=== PATIENT | female | born 1995 | race Caucasian/White ===

== ENCOUNTER 2024-01-28 17:30 | Emergency (ER) | payer BC, SELFPAY ==
--- NOTE | ~2024-01-28 | XR_ITS ---
CHEST RADIOGRAPH, PA AND LATERAL CLINICAL HISTORY: cough, chest congestion, sob x 5 days . COMPARISON: None available TECHNIQUE: PA and lateral views of the chest. FINDINGS The cardiomediastinal silhouette is unremarkable. The lungs are clear. Visualized osseous structures and soft tissues are unremarkable. IMPRESSION: No focal infiltrate or effusion. Reviewed, dictated and finalized at location A. DOPTERIST
--- NOTE | 2024-01-28 17:34 | ED.URI ---
HPI - URI/Sore Throat General Chief Complaint: Upper Respiratory Infection Stated Complaint: Cough/Chest Congestion Time Seen by Provider: 01/28/24 17:34 Source: patient Mode of arrival: ambulatory Limitations: no limitations History of Present Illness HPI Narrative: Sandy is a 28-year-old female patient presenting to the clinic today with complaints of productive cough with greenish yellow phlegm, sinus congestion, headache, shortness of breath, and chest congestion x5 days. She reports she was seen on Sunday when her symptoms started and was given a burst of prednisone. She had strep COVID and flu testing at that time and was negative. She was diagnosed with a URI. States her symptoms have not been improving and seems like they are getting worse. MD elicited complaint: cough, rhinorrhea, nasal congestion and sinus pain Related Data Allergies Allergy/AdvReac Type Severity Reaction Status Date / Time No Known Allergies Allergy Verified 01/28/24 17:37 Review of Systems Review of Systems: Pertinent positives per HPI. Patient denies any fever, chills, rash, visual changes, dizziness, shortness of breath, chest pain, palpitations, nausea, vomiting, diarrhea, constipation, abdominal pain, or any urinary issues. PMFSH Comments At the time of my signature, I reviewed and agree with the nursing past medical, surgical, social, and family history. There is no relevant family history pertinent to the patient complaint. Exam Narrative: General: Well-developed, well nourished, in no apparent distress Head: Normocephalic, atraumatic Eyes: Pupils equally round and reactive to light bilaterally, EOM intact, sclera and conjunctive clear, no discharge, lids normal Ears: TMs intact and congested, ear canals clear, no drainage, grossly hearing normal. Nose: Nares patent, clear nasal discharge, moderate inflammation, maxillary sinus tenderness. Mouth: Oral pharynx without lesions or masses, good dentition, MMM. Neck: Supple, trachea midline, no enlargement of anterior or posterior cervical nodes, no thyroid masses or goiter palpable. Cardio: Regular rate and rhythm, s1 and s2 normal, no murmur appreciated. Resp: Clear to auscultation bilaterally, no rhonchi, rales, wheezing or rubs Course Course Emergency Course: Portions of this record may have been created with voice recognition software. Level of Care: Express Care Visit Vital Signs Vital signs: Vital signs reviewed MDM - URI/Sore Throat MDM Narrative Medical decision making narrative: At the time of visit patient is resting comfortably on the exam table. Patient appears to be nontoxic. Diagnostics: Chest x-ray was negative for any sign of pneumonia. Plan: I suspect patient has URI. Will send in prescription for albuterol inhaler as needed for cough shortness breath or wheeze. Supportive measures were discussed with the patient and they voiced understanding discharge instructions and agrees to treatment plan. Return precautions reviewed Differential Diagnosis Differential diagnosis: Likely upper respiratory infection, otitis media, sinusitis, viral infection, bronchitis, influenza, pharyngitis and other (COVID) Discharge Plan Discharge Clinical Impression: Upper respiratory infection Qualifiers: URI type: unspecified URI Qualified Code(s): J06.9 - Acute upper respiratory infection, unspecified Patient Disposition: Home, Self-Care Condition: Stable Instructions: Antibiotic Form, Upper Respiratory Infection (ED) Additional Instructions: No sign of bacterial infection in the clinic today. Chest x-rays negative for any sign of pneumonia. May take Mucinex a to help liquify secretions Take medications as prescribed-albuterol inhaler May take DayQuil/NyQuil for cold/flu symptoms May take Sudafed as needed for nasal congestion Increase fluids and stay well hydrated Tylenol/motrin for pain/fever Flonase and OTC antihistamines as directed Vicks vapor rub to open sinuses Sinus rinses for congestion Cepacol spray, cough drops, throat lozenges, warm tea with honey/lemon, gargle salt water to soothe throat BRAT diet for diarrhea Clear liquids x 24 hours then advance as tolerated for nausea/vomiting Go to the ED if you develop a worsening in your condition- high fever not controlled by Tylenol or Motrin, dehydration, weakness, lethargy, shortness of breath, or chest pain. Follow up with your PCP in 3-5 days if symptoms persist. Prescriptions: New albuterol sulfate 90 mcg/actuation HFA aerosol inhaler 2 puff inhalation Q4-6H PRN (Reason: shortness of breath or wheezing) 30 Days Qty: 8.5 0RF Follow-up/Referrals: UNKNOWN,DOCTOR [Non-Staff] - Stand Alone Forms: Work/School Release IP Time of Disposition: 18:02 Quality NIHSS Nursing Documentation ED NIHSS nursing documentation: reviewed/agree
[2024-01-28 17:37] VITALS: BP 125/96; PULSE 81; RESP 16; TEMP 36.3; O2SAT 99
== END 2024-01-28 18:06 | disposition home or self-care (01) ==
PROVIDERS: Emergency Provider Nurse Practitioner Family
DX: J06.9 Acute upper respiratory infection, unspecified (principal)
CPT/HCPCS: 71046; 99203; G0463

== ENCOUNTER 2024-10-12 10:54 | Inpatient (IN) | payer BC, SELFPAY ==
[2024-10-12] VITALS (179 sets, daily range): BP systolic 68–153; BP diastolic 34–107; PULSE 86–147; TEMP 36.5–37.2; O2SAT 87–100; BMI 34.2
[2024-10-12 12:38] LABS: Hematocrit 39.1 % (37.0-47.0); Hemoglobin 12.7 g/dL (12.0-15.0); Immature Granulocyte Percent A 1.6 % (0-0.5); Lymphocytes Absolute Auto 1.88 K/mm3 (0.9-3.2); Mean Corpuscular HGB Conc 32.5 g/dl (32-36); Mean Corpuscular Hemoglobin 29.6 pg (26-34); Mean Corpuscular Volume 91.1 fl (80-100); Nucleated Red Blood Cells Absolute Auto 0.000 K/mm3 (0.0-0.012); Nucleated Red Blood Cells Perc 0.0 % (0.0-0.2); Platelet Count Result 169 k/mm3 (150-375); Red Blood Count 4.29 M/mm3 (4.2-5.4); White Blood Count 13.2 K/mm3 (4.5-10.0)
[2024-10-12] MEDS: LACTATED RINGERS 1,000 ML 125 ML IV CONT (12:45)
[2024-10-12] MEDS: AMPICILLIN SODIUM 2 GM in SODIUM CHLORIDE 0.9% IV 100 ML 200 ML IVPB (12:46)
--- NOTE | 2024-10-12 13:11 | LDADM ---
This patient, Sandy Duenas, was admitted to Labor/Delivery/Recovery 106 on 10/12/24 at 10:54. Plans for labor, pain management and were discussed with patient. Patient/family oriented to hospital policies and general routines including ID bracelet, bed and alarms, visiting hours, pain management, procedures, bathroom and other care routines, personal items, smoking policy, room service/diet and guest tray routines, security routines, and visiting hours. Patient/Family are encouraged to report perceived risks to care and to ask questions if they do not understand what they are told or what they should do. See OBIX for further documentation.
[2024-10-12 13:27] LABS: Syphilis IgG/IgM Antibody Non-Reactive (Nonreactive)
[2024-10-12 13:38] LABS: HIV 1/2 Ab P24 Ag Result Negative (Negative)
[2024-10-12] MEDS: LACTATED RINGERS 1,000 ML 999 ML IV CONT (14:50)
--- NOTE | 2024-10-12 15:02 | WPDANESEPP ---
Anes - Eval Pre Procedure Procedure: labor pain management Date/Time: 10/12/24 15:02 Surgeon: Louis Preop Diagnosis: pain during labor Pre Op Diagnosis: cramping Patient Data Age: 29 Gender: F Height: 1.83 m Weight: 114.5 kg Last Vital Signs Temp 98.9 F 10/12/24 14:53 Pulse 100 10/12/24 15:00 BP 138/82 10/12/24 15:00 Pulse Ox 94 10/12/24 14:57 Allergies Allergy/AdvReac Type Severity Reaction Status Date / Time No Known Allergies Allergy Verified 09/09/24 15:58 Home Medications ?Medication ?Instructions ?Recorded ?Confirmed ?Type albuterol sulfate 90 mcg/actuation 2 puff inhalation Q4-6H PRN 01/28/24 Rx aerosol inhaler shortness of breath or wheezing 30 days #8.5 grams Laboratory Tests 10/12/24 10/12/24 12:28 12:32 WBC 13.2 H K/mm3 (4.5-10.0) RBC 4.29 M/mm3 (4.2-5.4) Hgb 12.7 g/dL (12.0-15.0) Hct 39.1 % (37.0-47.0) MCV 91.1 fl (80-100) MCH 29.6 pg (26-34) MCHC 32.5 g/dl (32-36) RDW 13.5 % (11.5-14.5) Plt Count 169 k/mm3 (150-375) MPV 12.3 H fl (7.4-10.4) Immature Gran % (Auto) 1.6 H % (0-0.5) Neut % (Auto) 75.4 H % (45.5-73.1) Lymph % (Auto) 14.2 L % (18.3-44.2) [place] % (Auto) 6.7 % (2.6-8.5) Eos % (Auto) 1.9 % (0-4.4) Baso % (Auto) 0.2 % (0.2-1.2) Lymph # (Auto) 1.88 K/mm3 (0.9-3.2) [place] # (Auto) 0.9 H K/mm3 (0.1-0.6) Eos # (Auto) 0.3 K/mm3 (0-0.3) Baso # (Auto) 0.0 K/mm3 (0.0-0.1) Abs Immat Gran (auto) 0.21 H K/mm3 (0.00-0.031) Absolute Neuts (auto) 10.0 H K/mm3 (1.3-6.7) Absolute Nucleated RBC 0.000 K/mm3 (0.0-0.012) Nucleated RBC % 0.0 % (0.0-0.2) Syphilis IgG/IgM Ab Non-reactive (Nonreactive) HIV 1&2 Ab/P24 Ag 4thGn Negative (Negative) Blood Type A Positive Antibody Screen Negative Patient hx anesthesia problems: none Family hx anesthesia problems: none Results Review: All pre-operative results and documents have been reviewed as part of the pre-operative evaluation. COUNTS INCLUDE 234 BEDS AT THE [facility] Surgical History Surgical History History of tonsillectomy Social History Social History Smoking status: Never smoker Second hand tobacco smoke exposure: No Substance use: never Lack of Transportation: No Lack of Food: Never True Current Housing: I Have Housing Concerned About Future Housing: No Difficulty Paying Gas/Electric Bills: No Difficulty Paying for Meds: No Currently Unemployed: No Education: Bachelor's Degree Difficulty w/ Childcare or Family Care: No Spiritual care concerns: No Exam Day of Procedure 10/12/24 15:02
[2024-10-12] MEDS: AMPICILLIN SODIUM 1 GM in SODIUM CHLORIDE 0.9% IV 50 ML 100 ML IVPB ×2 (16:39→20:51)
[2024-10-12] MEDS: FAMOTIDINE 20 MG/2 ML VIAL (21:00)
[2024-10-12] MEDS: OXYTOCIN 30 UNITS/NS 500 ML 30 UNITS/500 ML BAG IV CONT (22:06)
--- NOTE | 2024-10-12 22:49 | WPDOBADMIT ---
Obstetrics - Admit Note Admission Note: record reviewed. No pertinent additions to the history and/or any subsequent changes in the physical findings that are not consistent with the expected course of the were found. Additions to the history and/or subsequent changes in the physical findings follow. Here at 35 2/7 weeks with labor. 2-3 cm on admit. Now -/-1 AROM with clear fluid. IUPC placed but catheter filled with blood so removed. FHTs 150's cat. I. Tried to start pitocin but had a run of late decels so discontinued. Decels resolved. Expectant management.
--- NOTE | 2024-10-12 23:42 | PM.OBPRVD ---
OB - Vaginal Delivery Note Procedure Delivery date: 10/12/24 Events: Other ( labor) Induction method: None Delivery augmentation: Rupture of Membranes Delivery monitor: External FHT and External Uterine Route of delivery: Episiotomy description: None Laceration Description: Periurethral and Perineal - 1st Degree Delivery repair: vicryl (3-0) Specimen: Yes (placenta) Quantitative Blood Loss (ml): 200 Anesthesia type: Epidural Disposition: Floor Complications: No immediate complications [place] Baby Date of : 10/12/24 Gestational Age by Date: 35 Infant gender: Male Weight (pounds): 6 Weight (ounces): 6 presentation: vertex position: Right Occiput Anterior Placenta delivery description: Spontaneous Cord Vessel Description: 3 Vessels and Delayed Cord Clamping score one minute: 8 score five minutes: 9
--- NOTE | 2024-10-12 23:44 | P.DS_ITS ---
DS: Admitting Diagnosis Discharge Date 10/13/24 Admitting Diagnosis IUP 35 3/7 wks with labor DS: Discharge Diagnosis Discharge Diagnosis (1) (spontaneous vaginal delivery): Code(s): O80 - Encounter for full-term uncomplicated delivery Status: Acute OB - DS: Summary OB Procedures : Ultrasound OB Procedures Intrapartum: Spontaneous Vag Delivery OB Procedures: : None Peripartum Data Infant Delivery Method: Natural Vaginal Laceration Description: Periurethral and Perineal - 1st Degree Episiotomy description: None Status at Discharge Functional status at discharge: independent ambulation Overall status at discharge: patient is progressing back to baseline Time Spent with Patient Time attestation: Total time spent providing and/or coordinating discharge services: DS: Data Data Completed and Pending Labs on day of discharge: Labs from last 24 hours 10/12/24 10/12/24 12:32 12:28 WBC 13.2 H RBC 4.29 Hgb 12.7 Hct 39.1 MCV 91.1 MCH 29.6 MCHC 32.5 RDW 13.5 Plt Count 169 MPV 12.3 H Immature Gran % (Auto) 1.6 H Neut % (Auto) 75.4 H Lymph % (Auto) 14.2 L [place] % (Auto) 6.7 Eos % (Auto) 1.9 Baso % (Auto) 0.2 Lymph # (Auto) 1.88 [place] # (Auto) 0.9 H Eos # (Auto) 0.3 Baso # (Auto) 0.0 Abs Immat Gran (auto) 0.21 H Absolute Neuts (auto) 10.0 H Absolute Nucleated RBC 0.000 Nucleated RBC % 0.0 Syphilis IgG/IgM Ab Non-reactive HIV 1&2 Ab/P24 Ag 4thGn Negative Blood Type A Positive Antibody Screen Negative Discharge Plan Discharge Attending physician on discharge: Eddie Loving Consulting providers: Lianet Nails; Dawn Goldman Discharging Clinician: Eddie Loving Anticipated Discharge Date/Time: 10/14/24 23:45 Patient Disposition: Home Activity: may shower and pelvic rest Diet: as tolerated and regular Discharge Instructions: Education: Mom and Baby Guide Given to: Mother Follow-Up: Call your delivering provider's office for an appointment to be seen in: Call for appointment Mom should come to the [facility] for the follow-up appointment. Appointment Date/Time: October 15, 2024 at 10:00 am What to expect at your follow-up visit: Blood Pressure Check Physical Assessment Call [phone] if you are unable to keep your appointment time. BREAST CARE: * Wear a snug supportive bra. * For engorgement discomfort: Breast Feeding: * Apply warm moist washcloths * Express milk as needed to relieve engorgement * Wear loose clothing Bottle Feeding: * May apply ice packs * For sore nipples: * Identify correct latch-on * Apply warm moist washcloths before and after nursing * Air dry nipples after nursing * May apply Lansinoh cream to nipples PERINEAL CARE: * Until bleeding stops, use your lawson bottle after urinating * Change your pad frequently throughout the day * You may take sitz baths several times a day (fill your bathtub with warm water and soak for 20 minutes.) Do NOT bathe in the water * No tub baths until seen by your physician - You may shower ACTIVITY: * Rest as much as possible. * Do not exercise or lift anything heavier than your baby (such as laundry or other children.) * Avoid stairs or driving as much as possible. * Do not put anything into the vagina. No douching, tampons, or sexual activity until seen by physician. NOTIFY PHYSICIAN IF YOU HAVE ANY QUESTIONS OR IF ANY OF THE FOLLOWING SYMPTOMS OCCUR: * If your vaginal bleeding becomes foul smelling. * If your vaginal bleeding becomes more heavy than a period or if your bleeding changes from pink to bright red. However, you may pass an occasional walnut- sized clot once or twice for the first week . * If you experience a sharp, shooting pain in your calves. * If you discover a hard, reddened area on your breast or if you experience flu- like symptoms. DIET: * Eat regular, well-balanced meals. * Drink plenty of fluids daily. If , drink to thirst. FEEDING PLAN: You are exclusively pumping at discharge. It is important to pump regularly and consistently to help initiate your milk supply. Regular milk removal is necessary for continued milk production. You need to pump at least 8 times every 24 hours. You can use hands on pumping to get better results with pumping and to encourage your breasts to produce more milk. Hands on pumping instructions: 1.? Massage your breasts before applying the breast pump. 2.? Pump both breasts at once. Use your hands to massage and compress while you pump. 3.? Stop pumping when the milk stops flowing 4.? Massage your breasts again 5.? End the pumping session by pumping or hand expressing one breast at a time while massaging and compressing your breast. Go back and forth between each breast until the milk stops flowing. 6.? Allow 25 minutes to complete this routine ? It is important to be sure you have a well-fitted pump flange. Consult your pump manual for recommended flange sizing or consult a professional. YOU SHOULD SET YOUR PUMP TO THE HIGHEST COMFORTABLE LEVEL. INCREASE THE SUCTION GRADUALLY UNTIL YOU REACH THE CORRECT SETTING. PUMPING SHOULD NOT HURT. CONSULT YOUR PUMP MANUAL FOR GUIDANCE ON PUMP SETTINGS AND FUNCTIONS. MOST PUMPS RECOMMEND 1-2 MINUTES OF THE QUICK ?MASSAGE? MODE, THEN SWITCHING TO THE SLOWER ?EXPRESSION? MODE FOR THE REMAINDER OF THE PUMPING SESSION. Pump each breast for 10-15 minutes. Pumping will help stimulate your breasts to produce milk. ?Follow the collection and storage sheet given to you in the Mom and Baby Guide. Remember to keep track of all feedings/elimination on the blue worksheet provided. Clean your pump parts between each pumping session according to the guidelines in your pump manual. It is recommended that you use a basin that is reserved for washing pump parts that is separate from your sink to prevent contamination. If you are pumping for an ill or , you should disinfect your pump parts once a day by boiling them in hot water for 5 minutes after cleaning. Ways to increase your milk supply: ? Increase frequency of pumping (10-12 times every 24 hours) ? Lots of skin to skin (if infant is able), especially before pumping ? Use warm washcloths before pumping and gentle breast massage before and during pumping ? Reduce stress, relax with music, get plenty of rest, and drink to thirst ? Warm pump flanges with warm water before pumping ? Pump until the milk stops flowing, then pump for 2 more minutes to fully empty the breast ? Pump at least once through the night, milk shouldn't remain in the breast for longer than 4 hours ? Power pumping: Pump for 15-20 minutes, rest for 10 minutes, pump for 10, rest for 10, pump for 10. Do this routine 1-2 times a day for several days or until you notice an increase in milk supply. Pump normally between power pumping sessions. You may contact the Team at [phone] for questions and appointments. Patient Language: [place] Stand Alone Forms: General Discharge Information, Work/School Release IP Follow-up/Referrals: Eddie Loving MD [Physician] - Call for Appointment Discharge Medications: Continued albuterol sulfate 90 mcg/actuation HFA aerosol inhaler 2 puff inhalation Q4-6H PRN (Reason: shortness of breath or wheezing) 30 Days Qty: 8.5 0RF Date of admission: 10/12/24 10:54 Primary Care Provider: PHYSICIAN,BANKING PIN ADJUSTER Admitting Provider: Lolita Myers Attending physician on admission: Eddie Loving Condition: Stable
[2024-10-13] VITALS (33 sets, daily range): BP systolic 114–136; BP diastolic 77–106; PULSE 85–109; RESP 18; TEMP 36.2–36.5; O2SAT 97–100
[2024-10-13] MEDS: OXYTOCIN 30 UNITS/NS 500 ML 30 UNITS/500 ML BAG 125 UNITS IV CONT
[2024-10-13] MEDS: ACETAMINOPHEN 325 MG TABLET 650 MG PO ×2 (01:36→07:45)
[2024-10-13] MEDS: IBUPROFEN 600 MG TABLET PO ×2 (01:36→07:45)
--- NOTE | 2024-10-13 02:28 | OBPPTRN ---
Patient transferred to post room #286 via w/c. Support person present. Oriented to unit, room, information board, rooming in, admission packet and security measures. Patient verbalizes understanding.
[2024-10-13 05:50] LABS: Hematocrit 34.9 % (37.0-47.0); Hemoglobin 11.4 g/dL (12.0-15.0)
--- NOTE | 2024-10-13 06:57 | P.PNOB_ITS ---
OB - PN: Subj Subjective Date/time seen: 10/13/24 06:57 Patient comments: no complaints, pain well controlled and tolerating diet [place] feeding status: other (Baby being transferred and patient would like to leave) OB - PN: Obj Data Labs 10/13/24 04:19 Labs: Laboratory Results - last 24 hr 10/12/24 10/12/24 10/13/24 12:28 12:32 04:19 WBC 13.2 H RBC 4.29 Hgb 12.7 11.4 L Hct 39.1 34.9 L MCV 91.1 MCH 29.6 MCHC 32.5 RDW 13.5 Plt Count 169 MPV 12.3 H Immature Gran % (Auto) 1.6 H Neut % (Auto) 75.4 H Lymph % (Auto) 14.2 L [place] % (Auto) 6.7 Eos % (Auto) 1.9 Baso % (Auto) 0.2 Lymph # (Auto) 1.88 [place] # (Auto) 0.9 H Eos # (Auto) 0.3 Baso # (Auto) 0.0 Abs Immat Gran (auto) 0.21 H Absolute Neuts (auto) 10.0 H Absolute Nucleated RBC 0.000 Nucleated RBC % 0.0 Syphilis IgG/IgM Ab Non-reactive HIV 1&2 Ab/P24 Ag 4thGn Negative Blood Type A Positive Antibody Screen Negative OB - PN A/P Assessment and Plan (1) : Code(s): Z34.90 - Encounter for supervision of normal , unspecified, unspecified trimester Status: Acute Plan Home Time Spent With Patient Time: Total time spent is greater than 50% in coordination of care (as documented) at patient's floor/unit and/or counseling patient: Review of Systems 2 Review of Systems: Pertinent positives per HPI. Patient denies any fever, chills, rash, visual changes, dizziness, shortness of breath, chest pain, palpitations, nausea, vomiting, diarrhea, constipation, abdominal pain, or any urinary issues. Exam 2 Narrative: General: Well-developed, well nourished, in no apparent distress Head: Normocephalic, atraumatic Eyes: Pupils equally round and reactive to light bilaterally, EOM intact, sclera and conjunctive clear, no discharge, lids normal Ears: TMs intact and congested, ear canals clear, no drainage, grossly hearing normal. Nose: Nares patent, clear nasal discharge, moderate inflammation, maxillary sinus tenderness. Mouth: Oral pharynx without lesions or masses, good dentition, MMM. Neck: Supple, trachea midline, no enlargement of anterior or posterior cervical nodes, no thyroid masses or goiter palpable. Cardio: Regular rate and rhythm, s1 and s2 normal, no murmur appreciated. Resp: Clear to auscultation bilaterally, no rhonchi, rales, wheezing or rubs
--- NOTE | 2024-10-13 06:58 | PM.DS ---
DS: Admitting Diagnosis Discharge Date 10/13/2024 Admitting Diagnosis Pre term labor DS: Discharge Diagnosis Discharge Diagnosis (1) (spontaneous vaginal delivery): Code(s): O80 - Encounter for full-term uncomplicated delivery Status: Acute (2) Premature rupture of membranes (PROM), onset of labor within 24 hours, antepartum, full term: Code(s): O42.02 - Full-term premature rupture of membranes, onset of labor within 24 hours of rupture Status: Acute DS: Summary Hospital Course Reason for hospitalization: Patient admitted at 35 weeks gestation active labor and underwent spontaneous vaginal delivery Hospital Course: Patient's hospital course unremarkable. The baby was pre term was transferred to [facility] and the patient is assessed to be discharged early. Her hospital course unremarkable. She remained afebrile. She was up, voiding without difficulty, eating regular diet, ambulating, and generally without complaints. Time Spent with Patient Time attestation: Total time spent providing and/or coordinating discharge services: Exam Narrative: General: Well-developed, well nourished, in no apparent distress Head: Normocephalic, atraumatic Eyes: Pupils equally round and reactive to light bilaterally, EOM intact, sclera and conjunctive clear, no discharge, lids normal Ears: TMs intact and congested, ear canals clear, no drainage, grossly hearing normal. Nose: Nares patent, clear nasal discharge, moderate inflammation, maxillary sinus tenderness. Mouth: Oral pharynx without lesions or masses, good dentition, MMM. Neck: Supple, trachea midline, no enlargement of anterior or posterior cervical nodes, no thyroid masses or goiter palpable. Cardio: Regular rate and rhythm, s1 and s2 normal, no murmur appreciated. Resp: Clear to auscultation bilaterally, no rhonchi, rales, wheezing or rubs DS: Data Data Completed and Pending Labs on day of discharge: Labs from last 24 hours 10/13/24 10/12/24 10/12/24 04:19 12:32 12:28 WBC 13.2 H RBC 4.29 Hgb 11.4 L 12.7 Hct 34.9 L 39.1 MCV 91.1 MCH 29.6 MCHC 32.5 RDW 13.5 Plt Count 169 MPV 12.3 H Immature Gran % (Auto) 1.6 H Neut % (Auto) 75.4 H Lymph % (Auto) 14.2 L [place] % (Auto) 6.7 Eos % (Auto) 1.9 Baso % (Auto) 0.2 Lymph # (Auto) 1.88 [place] # (Auto) 0.9 H Eos # (Auto) 0.3 Baso # (Auto) 0.0 Abs Immat Gran (auto) 0.21 H Absolute Neuts (auto) 10.0 H Absolute Nucleated RBC 0.000 Nucleated RBC % 0.0 Syphilis IgG/IgM Ab Non-reactive HIV 1&2 Ab/P24 Ag 4thGn Negative Blood Type A Positive Antibody Screen Negative Discharge Plan Discharge Attending physician on discharge: Eddie Loving Discharging Clinician: Eddie Loving Anticipated Discharge Date/Time: 10/14/24 23:45 Patient Disposition: Home Activity: may shower and pelvic rest Diet: as tolerated and regular Patient Instructions: Antibiotic Form Patient Language: [place] Stand Alone Forms: General Discharge Information, Work/School Release IP Follow-up/Referrals: Eddie Loving MD [Physician] - Call for Appointment Discharge Medications: Continued albuterol sulfate 90 mcg/actuation HFA aerosol inhaler 2 puff inhalation Q4-6H PRN (Reason: shortness of breath or wheezing) 30 Days Qty: 8.5 0RF Date of admission: 10/12/24 10:54 Primary Care Provider: PHYSICIAN,[employer] SEWER Admitting Provider: Eddie Loving Attending physician on admission: Eddie Loving Condition: Stable
[2024-10-13] MEDS: MULTIVIT/MIN/PREN/FOL AC/IRON TABLET 1 TAB PO (07:45)
[2024-10-13] MEDS: DOCUSATE SODIUM 100 MG CAPSULE PO (07:45)
--- NOTE | 2024-10-13 08:20 | WPDANLDPN2 ---
Anes-Prog Note L&D Date/Time: 10/13/24 08:20 Comfortable throughout: labor and delivery Neuraxial method: epidural Epidural/Spinal procedure site: clean & non-tender Neuro status: Neuro function grossly intact. Cardiovascular status: normal Respiratory status: normal Airway patency: baseline Mental status: baseline Post-Op hydration status: normal Vital Signs: Last Vital Signs Temp 36.5 C 10/13/24 02:45 Pulse 86 10/13/24 02:45 Resp 18 10/13/24 02:45 BP 122/83 10/13/24 02:45 Pulse Ox 100 10/13/24 02:45 O2 Del Method Room Air 10/13/24 02:45 Pain score (VAS): 2 I/O: Intake & Output 10/12/24 10/13/24 10/13/24 23:59 07:59 15:59 Intake Total 50 Output Total 1100 Balance 50 -1100 Post-procedural complaints: none Patient feedback: Patient satisfied with anesthetic care.
--- NOTE | 2024-10-13 10:45 | PC.NURSE ---
Patient set up with her Spectra breast pump due to being transferred to [facility]. Mother was shown proper sizing (measured at 19mm, using 24mm flange) and placement of flanges, pump settings, and cleaning of pump parts. Recommended 15 minutes of pumping both breasts simultaneously. Patient is aware that pumping should not hurt. She is encouraged to use the highest comfortable suction setting, gradually increasing the level as she pumps. Breast milk storage guidelines provided in mom/baby guide. Primary RN updated.??
== END 2024-10-13 12:10 | disposition home or self-care (01) | DRG 807 ==
LOC: ANHOBPP 12:00 → ANHLDR 12:06 → ANHOB2 10-13 02:29
PROVIDERS: Admitting Provider Obstetrics & Gynecology Gynecology; Visit Provider Obstetrics & Gynecology
DX: O60.14X0 Preterm labor third trimester with preterm delivery third trimester, not applicable or unspecified (principal); Z37.0 Single live birth; Z3A.35 35 weeks gestation of pregnancy; O70.0 First degree perineal laceration during delivery; O36.8330 Maternal care for abnormalities of the fetal heart rate or rhythm, third trimester, not applicable or unspecified; O42.013 Preterm premature rupture of membranes, onset of labor within 24 hours of rupture, third trimester
CPT/HCPCS: 36415; 85014; 85018; 85025; 86593; 86703; 86850; 86900; 86901; A9270; G0432; J0290; J2590; J2795; J7120